=== PATIENT | male | born 1980 | race Hispanic/Latino ===

== ENCOUNTER 2022-10-26 13:19 | Emergency (ER) | payer SELFPAY ==
[~2022-10-26] VITALS: Ht 167.6 cm; Wt 81.6 kg
[2022-10-26 13:38] LABS: BASOPHILS % 0.1 % (0.0-1.0); EOSINOPHILS % 0.1 % (0.0-6.0); HEMATOCRIT 46.1 % (38.2-49.6); HEMOGLOBIN 15.9 g/dL (14.0-18.0); LYMPHOCYTES # (AUTO) 1.3 (1.0-3.2); LYMPHOCYTES % 10.6 % (18.0-39.1); MEAN CORPUSCULAR HEMOGLOBIN 29.6 pg (28-32); MEAN CORPUSCULAR HGB CONC 34.5 g/dL (31-35); MEAN CORPUSCULAR VOLUME 85.8 fL (81-99); MONOCYTES # (AUTO) 0.4 (0.2-0.8); MONOCYTES % 3.2 % (4.4-11.3); NEUTROPHILS # (AUTO) 10.6 (2.1-6.9); NEUTROPHILS % 85.6 % (38.7-80.0); PLATELET COUNT 243 x10e3/uL (140-360); RED BLOOD COUNT 5.37 x10e6/uL (4.3-5.7); RED CELL DISTRIBUTION WIDTH 13.2 % (11.7-14.4)
[2022-10-26] MEDS ORDERED: HALOPERIDOL LACTATE 5 MG/ML VIAL IV ONE (13:45)
[2022-10-26 13:58] LABS: ALBUMIN 4.5 g/dL (3.5-5.0); ALBUMIN/GLOBULIN RATIO 1.3 (0.8-2.0); ANION GAP 15.8 mmol/L (8-16); CALCIUM 9.6 mg/dL (8.4-10.2); CREATININE, SERUM 0.78 mg/dL (0.72-1.25); POTASSIUM 3.8 mmol/L (3.5-5.1)
[2022-10-26] MEDS ORDERED: HEPARIN 25,000 UNIT/D5W 250ML 900 UNIT in DEXTROSE 5% 250ML 250 ML IV SCH (14:15)
[2022-10-26] MEDS ORDERED: NITROGLYCERIN 0.4 MG SUBL SL ONE (14:15)
[2022-10-26] MEDS ORDERED: ASPIRIN 81 MG CHEW TAB PO ONE (14:15)
[2022-10-26] MEDS ORDERED: CLOPIDOGREL BISULFATE 75 MG TAB PO ONE (14:15)
[2022-10-26 14:29] LABS: INR 0.93; PARTIAL THROMBOPLASTIN TIME 26.6 seconds (23.8-35.5)
[2022-10-26] MEDS ORDERED: ONDANSETRON HCL INJ 2MG/ML 2ML 2 MG/ML VIAL IV NR (14:45)
[2022-10-26] MEDS ORDERED: HEPARIN SOD (PORCINE) 5,000 UNIT/ML VIAL IV ONE (14:45)
[2022-10-26 15:51] VITALS: O2SAT 100
== END 2022-10-26 16:05 | disposition other institution (70) ==
LOC: ER 13:34
DX: R07.89 Other chest pain (principal); I21.4 Non-ST elevation (NSTEMI) myocardial infarction; M54.9 Dorsalgia, unspecified; G89.29 Other chronic pain; Z20.822 Contact with and (suspected) exposure to COVID-19
CPT/HCPCS: 36415; 71045; 80053; 83690; 84484; 85025; 85610; 85730; 93005; 99284; J1644; J2405; U0002

== ENCOUNTER 2022-11-18 19:58 | Observation (INO) | payer OTHER ==
[~2022-11-18] VITALS: Ht 167.6 cm; Wt 81.6 kg
[2022-11-18] MEDS ORDERED: ONDANSETRON HCL INJ 2MG/ML 2ML 2 MG/ML VIAL IV STA (20:05)
[2022-11-18] MEDS ORDERED: SODIUM CHLORIDE FLUSH 10 ML SYR IV PRN (20:15)
[2022-11-18 20:24] LABS: BASOPHILS % 0.4 % (0.0-1.0); EOSINOPHILS # (AUTO) 0.4 (0.0-0.4); EOSINOPHILS % 4.5 % (0.0-6.0); HEMATOCRIT 28.3 % (38.2-49.6); LYMPHOCYTES % 22.2 % (18.0-39.1); MEAN CORPUSCULAR HEMOGLOBIN 27.8 pg (28-32); MEAN CORPUSCULAR HGB CONC 31.8 g/dL (31-35); MEAN CORPUSCULAR VOLUME 87.3 fL (81-99); MONOCYTES # (AUTO) 0.7 (0.2-0.8); MONOCYTES % 7.4 % (4.4-11.3); NEUTROPHILS % 65.2 % (38.7-80.0); PLATELET COUNT 391 x10e3/uL (140-360); RED BLOOD COUNT 3.24 x10e6/uL (4.3-5.7); RED CELL DISTRIBUTION WIDTH 14.2 % (11.7-14.4)
[2022-11-18 20:38] LABS: ALBUMIN 3.2 g/dL (3.5-5.0); ALBUMIN/GLOBULIN RATIO 0.9 (0.8-2.0); ANION GAP 13.7 mmol/L (8-16); CALCIUM 8.7 mg/dL (8.4-10.2); CREATININE, SERUM 0.79 mg/dL (0.72-1.25); POTASSIUM 3.7 mmol/L (3.5-5.1)
[2022-11-18] MEDS ORDERED: FUROSEMIDE INJ 10 MG/ML 4 ML VIAL IV ONE (21:45)
[2022-11-18] MEDS ORDERED: ASPIRIN 81 MG CHEW TAB PO ONE ×2 (21:45)
[2022-11-18] MEDS ORDERED: Morphine 2mg Syringe 2 MG/ML SYR IV PRN (21:45)
[2022-11-18] MEDS ORDERED: SODIUM CHLORIDE FLUSH 10 ML SYR INJ PRN (21:45)
[2022-11-18] MEDS ORDERED: ONDANSETRON HCL INJ 2MG/ML 2ML 2 MG/ML VIAL IV PRN (21:45)
[2022-11-18] MEDS ORDERED: BACLOFEN 10 MG TAB PO ONE (23:00)
[2022-11-18] MEDS ORDERED: TIZANIDINE HCL 4 MG TAB PO ONE (23:00)
[2022-11-19] VITALS (9 sets, daily range): BP systolic 96–125; BP diastolic 51–72; PULSE 77–92; RESP 16–21; TEMP 97.8–98.5; O2SAT 94–100
[2022-11-19] MEDS ORDERED: BACLOFEN10 MG PO (00:42)
[2022-11-19] MEDS ORDERED: TIZANIDINE HCL4 M1 PO (00:42)
[2022-11-19] MEDS ORDERED: LIPITOR20 MG PO (00:42)
[2022-11-19] MEDS ORDERED: TYLENOL325 MG PO (00:42)
[2022-11-19] MEDS ORDERED: ASPIRIN81 MG PO (00:42)
[2022-11-19] MEDS ORDERED: CLOPIDOGREL75 MG PO (00:42)
[2022-11-19] MEDS ORDERED: METOPROLOL TART25 MG PO (00:42)
[2022-11-19] MEDS ORDERED: ULTRAM 50MG50 MG PO (00:42)
[2022-11-19] MEDS: KETOROLAC TROMETHAMINE 30 MG/ML VIAL IV PRN ×2 (01:14→20:36)
[2022-11-19 04:49] LABS: BASOPHILS % 0.2 % (0.0-1.0); EOSINOPHILS # (AUTO) 0.5 (0.0-0.4); EOSINOPHILS % 5.5 % (0.0-6.0); HEMOGLOBIN 9.8 g/dL (14.0-18.0); LYMPHOCYTES # (AUTO) 1.8 (1.0-3.2); LYMPHOCYTES % 22.2 % (18.0-39.1); MEAN CORPUSCULAR HGB CONC 31.6 g/dL (31-35); MEAN CORPUSCULAR VOLUME 88.6 fL (81-99); MONOCYTES # (AUTO) 0.7 (0.2-0.8); MONOCYTES % 8.3 % (4.4-11.3); NEUTROPHILS # (AUTO) 5.2 (2.1-6.9); NEUTROPHILS % 63.6 % (38.7-80.0); PLATELET COUNT 362 x10e3/uL (140-360); RED CELL DISTRIBUTION WIDTH 14.4 % (11.7-14.4)
[2022-11-19 05:08] LABS: ALBUMIN 3.3 g/dL (3.5-5.0); ALBUMIN/GLOBULIN RATIO 0.9 (0.8-2.0); ANION GAP 12.8 mmol/L (8-16); CALCIUM 9.3 mg/dL (8.4-10.2); CREATININE, SERUM 0.88 mg/dL (0.72-1.25); POTASSIUM 3.8 mmol/L (3.5-5.1)
[2022-11-19] MEDS ORDERED: ASPIRIN 325 MG TAB EC PO SCH (09:00)
[2022-11-19] MEDS ORDERED: DEXTROSE 50% SYRINGE 50 ML IV PRN (10:45)
[2022-11-19] MEDS ORDERED: SIMETHICONE 80 MG CHEW PO PRN (10:45)
[2022-11-19] MEDS ORDERED: ACETAMINOPHEN 325 MG TAB PO PRN (10:45)
[2022-11-19] MEDS ORDERED: ONDANSETRON HCL INJ 2MG/ML 2ML 2 MG/ML VIAL IV PRN (10:45)
[2022-11-19] MEDS ORDERED: DIPHENHYDRAMINE HCL 25 MG CAP PO PRN (10:45)
[2022-11-19] MEDS ORDERED: TRAMADOL HCL 50 MG TAB PO PRN (10:45)
[2022-11-19] MEDS ORDERED: DOCUSATE SODIUM 100 MG CAP PO PRN (10:45)
[2022-11-19] MEDS ORDERED: HYDRALAZINE HCL 20 MG/ML VIAL IV PRN (10:45)
[2022-11-19] MEDS ORDERED: POTASSIUM CHLORIDE 20 MEQ TAB CR PO PRN (10:45)
[2022-11-19] MEDS ORDERED: MELATONIN 5 MG TABLET PO PRN (10:45)
[2022-11-19] MEDS ORDERED: ALBUTEROL/IPRATROPIUM 3 ML NEB NEB PRN (10:45)
[2022-11-19] MEDS ORDERED: LIDOCAINE 4% PATCH TP PRN (10:45)
[2022-11-19] MEDS ORDERED: BENZONATATE 100 MG CAP PO PRN (10:45)
[2022-11-19] MEDS: TIZANIDINE HCL 4 MG TAB PO PRN ×2 (11:06→20:35)
[2022-11-19] MEDS: BACLOFEN 10 MG TAB PO PRN ×2 (11:06→20:35)
[2022-11-19] MEDS: CLOPIDOGREL BISULFATE 75 MG TAB PO SCH (11:06)
[2022-11-19] MEDS: NAPROXEN 250 MG TAB PO SCH (16:07)
[2022-11-19] MEDS: METOPROLOL TARTRATE 25 MG TAB PO SCH (16:07)
[2022-11-19] MEDS ORDERED: ENOXAPARIN SOD INJ 40 MG/0.4 ML SYR SC SCH (17:00)
[2022-11-19] MEDS ORDERED: ATORVASTATIN 40 MG TAB PO SCH (21:00)
[2022-11-20] VITALS (7 sets, daily range): BP systolic 95–126; BP diastolic 59–80; PULSE 75–85; RESP 16–20; TEMP 97.6–98.7; O2SAT 98–100
[2022-11-20] MEDS: BACLOFEN 10 MG TAB PO PRN (04:46)
[2022-11-20] MEDS: TIZANIDINE HCL 4 MG TAB PO PRN (04:46)
[2022-11-20] MEDS: KETOROLAC TROMETHAMINE 30 MG/ML VIAL IV PRN ×2 (04:47→11:24)
[2022-11-20 05:02] LABS: BASOPHILS % 0.3 % (0.0-1.0); EOSINOPHILS # (AUTO) 0.5 (0.0-0.4); EOSINOPHILS % 6.1 % (0.0-6.0); HEMATOCRIT 30.8 % (38.2-49.6); HEMOGLOBIN 9.6 g/dL (14.0-18.0); LYMPHOCYTES # (AUTO) 1.5 (1.0-3.2); LYMPHOCYTES % 20.2 % (18.0-39.1); MEAN CORPUSCULAR HEMOGLOBIN 27.9 pg (28-32); MEAN CORPUSCULAR HGB CONC 31.2 g/dL (31-35); MEAN CORPUSCULAR VOLUME 89.5 fL (81-99); MONOCYTES # (AUTO) 0.6 (0.2-0.8); MONOCYTES % 7.5 % (4.4-11.3); NEUTROPHILS % 65.5 % (38.7-80.0); PLATELET COUNT 350 x10e3/uL (140-360); RED BLOOD COUNT 3.44 x10e6/uL (4.3-5.7); RED CELL DISTRIBUTION WIDTH 14.1 % (11.7-14.4)
[2022-11-20 05:25] LABS: ANION GAP 12.9 mmol/L (8-16); CHOL/HDL RATIO 4.1 (3.9-4.7); CREATININE, SERUM 0.67 mg/dL (0.72-1.25); PHOSPHORUS 4.3 MG/DL (2.3-4.7); POTASSIUM 3.9 mmol/L (3.5-5.1)
[2022-11-20 05:49] LABS: THYROID STIMULATING HORMONE 1.181 uIU/mL (0.350-4.940)
[2022-11-20] MEDS ORDERED: PANTOPRAZOLE SOD 40 MG TABEC PO SCH (07:30)
[2022-11-20] MEDS ORDERED: ASPIRIN 81 MG CHEW TAB PO SCH (09:00)
[2022-11-20] MEDS ORDERED: CLOPIDOGREL BISULFATE 75 MG TAB PO SCH (09:00)
[2022-11-20] MEDS: NAPROXEN 250 MG TAB PO SCH (09:43)
[2022-11-20] MEDS: METOPROLOL TARTRATE 25 MG TAB PO SCH (09:43)
[2022-11-20] MEDS: CLOPIDOGREL BISULFATE 75 MG TAB PO SCH (09:44)
[2022-11-20] MEDS ORDERED: PANTOPRAZOLE SO40 MG PO (15:59)
[2022-11-20] MEDS ORDERED: NAPROXEN250 MG PO (16:01)
[2022-11-20] MEDS ORDERED: ONDANSETRON HCL 4 MG ORAL DISINTEGRATING TAB PO PRN (16:30)
== END 2022-11-20 16:43 | disposition home or self-care (01) ==
LOC: ER 20:02 → ERHOLD 21:39 → MED/SURG 23:59
PROVIDERS: ADMIT Internal Medicine; ATTEND Internal Medicine
DX: M94.0 Chondrocostal junction syndrome [Tietze] (principal); R07.9 Chest pain, unspecified; I25.10 Atherosclerotic heart disease of native coronary artery without angina pectoris; E78.5 Hyperlipidemia, unspecified; D64.9 Anemia, unspecified; Z95.1 Presence of aortocoronary bypass graft; Z20.822 Contact with and (suspected) exposure to COVID-19; Z79.02 Long term (current) use of antithrombotics/antiplatelets; Z79.82 Long term (current) use of aspirin; Z79.899 Other long term (current) drug therapy; Z82.49 Family history of ischemic heart disease and other diseases of the circulatory system
CPT/HCPCS: 0223U; 36415 ×3; 71046; 80048; 80053 ×2; 80061; 82550 ×2; 82553 ×2; 83036; 83735; 83880; 84100; 84443; 84484 ×2; 85025 ×3; 93005 ×2; 93306; 94799 ×2; 99284; G0378 ×3; J1650; J1885 ×2; J1940; J2270; J2405 ×3; S0164